=== PATIENT | male | born 1955 | race Caucasian/White ===

== ENCOUNTER 2018-09-01 14:26 | Inpatient (IN) | payer BC, MEDICARE ==
[~2018-09-01] VITALS: Ht 180.3 cm; Wt 113.4 kg
--- NOTE | 2018-09-01 14:27 | NUR ---
AAOX3, BIBRA 76 C/O SYNCOPAL EPISODE WHILE DRIVING HOME, NO TRAUMA, NEW ONSET AFIB PER CLINICAL LABORATORY TECHNICIAN. RR IS EVEN AND UNLABORED WITH NAD NOTED. SKIN IS WARM AND DRY. PLACED ON THE MONITOR. EKG IN PROGRESS AT BS.
--- NOTE | 2018-09-01 14:30 | NUR ---
Note undone in EDM - 09/01/18 at 1440 by KUSUM PT BIBRA 76 C/O SYNCOPAL EPISODE WHILE DRIVING HOME, NO TRAUMA, AI=[id number]/DL SPEED BELT SANDER, NEW ONSET AFIB. ALERT AND ORIENTED X 4, VERBALLY RESPONSIVE AND ABLE TO MAKE NEEDS KNOWN. ON ROM AIR, BREATHING EVENLY, AND UNLABORED. DENIES ANY PAIN AT THIS TIME. CONNECTED TO THE MONITOR AND PUT ON A GOWN. KEPT COMFORTABLE. WILL CONTINUE TO MONITOR ACCORDINGLY.
--- NOTE | 2018-09-01 14:34 | NUR ---
DR ENGLISH AT BS FOR EVAL.
[2018-09-01 14:41] LABS: BASOPHILS % (AUTO) 0.7 % (0.0-2.0); EOSINOPHILS % (AUTO) 1.7 % (0.0-6.0); HEMATOCRIT 33 % (39-51); HEMOGLOBIN 10.6 g/dL (13.5-17.5); LYMPHOCYTES # (AUTO) 0.8 /CMM (0.8-4.8); MEAN CORPUSCULAR HGB CONC 33 g/dl (31.0-36.0); MEAN CORPUSCULAR VOLUME 87 fL (80-96); MONOCYTES # (AUTO) 0.6 /CMM (0.1-1.30); MONOCYTES % (AUTO) 12.1 % (2.0-12.0); NEUTROPHILS # (AUTO) 3.6 /CMM (1.8-8.9); NEUTROPHILS % (AUTO) 70.5 % (43.0-81.0); PLATELET COUNT (AUTO) 205 /CMM (150-450); RED BLOOD CELL COUNT(AUTO) 3.76 MIL/uL (4.5-6.0); WHITE BLOOD COUNT (AUTO) 5.1 K/uL (4.3-11.0)
--- NOTE | 2018-09-01 14:50 | NUR ---
PLASMA PROCESSING CENTRIFUGE OPERATOR AT BEDSIDE.
[2018-09-01 14:55] LABS: ALANINE AMINOTRANSFERASE 20 U/L (12-78); ALBUMIN 3.6 g/dL (3.4-5.0); ALKALINE PHOSPHATASE 60 U/L (46-116); ASPARTATE AMINOTRANSFERASE 14 U/L (15-37); BILIRUBIN,DIRECT 0.1 mg/dL (0.0-0.2); BILIRUBIN,TOTAL 0.3 mg/dL (0.2-1.0); CALCIUM, SERUM 6.8 mg/dL (8.5-10.1); CARBON DIOXIDE 30 mmol/L (21-32); GLUCOSE 95 mg/dL (74-106); TOTAL PROTEIN, SERUM 6.4 g/dL (6.4-8.2); UREA NITROGEN, BLOOD 24 mg/dL (7-18)
[2018-09-01 15:09] LABS: CHLORIDE 107 mmol/L (98-107); POTASSIUM 3.6 mmol/L (3.5-5.1); SODIUM SERUM 150 mmol/L (136-145)
[2018-09-01] MEDS ORDERED: ASPI-1169 PO (15:25)
[2018-09-01] MEDS ORDERED: ATEN25TA PO (15:25)
[2018-09-01] MEDS ORDERED: AMLO2.5T3 PO (15:25)
[2018-09-01] MEDS ORDERED: LEVO125T8 PO (15:25)
[2018-09-01] MEDS ORDERED: ROSU5TAB PO (15:25)
[2018-09-01] MEDS ORDERED: PIOG15TA8 PO (15:25)
[2018-09-01] MEDS ORDERED: DOXA2TAB PO (15:25)
[2018-09-01] MEDS ORDERED: LISI2.5T2 PO (15:25)
[2018-09-01] MEDS ORDERED: RANI150T43 PO (15:25)
[2018-09-01] MEDS ORDERED: IV NS 0.9% 500 ML BAG IV ONE (16:30)
--- NOTE | 2018-09-01 16:47 | NUR ---
CALLED NURSING SUP REQUESTING TELE BED FOR THIS PATIENT
[2018-09-01] MEDS ORDERED: IOHEXOL-350 100 ML VIAL IV ONE (16:48)
[2018-09-01] MEDS ORDERED: CT SWABBABLE VALVE TRANS SET 1 EA INFUS.SET MC ONE (16:48)
[2018-09-01] MEDS ORDERED: IV NS 0.9% 250 ML IV ONE (16:48)
--- NOTE | 2018-09-01 16:53 | NUR ---
WHEELED PATIENT VIA [facility] FOR CT SCAN.
--- NOTE | 2018-09-01 17:09 | NUR ---
PT CAME BACK FROM CT.
--- NOTE | 2018-09-01 17:13 | NUR ---
ADRIANOG SLICER MACHINE OPERATOR GAVE ROOM PT GOING TO ROOM 322-2 T.
[2018-09-01] MEDS ORDERED: IV 1/2NS 1000 ML 1,000 ML IV PRN (17:27)
[2018-09-01] MEDS ORDERED: INSULIN REGULAR, HUMAN 100 UNIT/ML 3 ML VIAL SQ PRN (17:30)
[2018-09-01] MEDS ORDERED: HYDROCODONE/APAP 5/325MG 1 EACH TABLET PO PRN (17:30)
[2018-09-01] MEDS ORDERED: MAG HYDROX/AL HYDROX/SIMETH 30 ML UDC PO PRN (17:30)
[2018-09-01] MEDS ORDERED: *INSULIN REGULAR(HUMULIN R)HUM 100 UNIT/ML VIAL SQ PRN (17:30)
[2018-09-01] MEDS ORDERED: ZOLPIDEM TARTRATE 5 MG TABLET PO PRN (17:30)
[2018-09-01] MEDS ORDERED: MAGNESIUM HYDROXIDE 30 ML UDC PO PRN (17:30)
[2018-09-01] MEDS ORDERED: ONDANSETRON HCL/PF 4 MG/2 ML VIAL IVP PRN (17:30)
[2018-09-01] MEDS ORDERED: DEXTROSE 50%-WATER 50 ML DISP.SYRIN IV PRN (17:30)
[2018-09-01] MEDS ORDERED: Z GUARD REMEDY 2 OZ OINT TP PRN (17:30)
--- NOTE | 2018-09-01 17:31 | NUR ---
CALLED [facility] AND SPOKE TO SABINE BISHOP FOR REPORT GOING TO ROOM 322-2.
--- NOTE | 2018-09-01 18:27 | NUR ---
TRANSFERRED PATIENT TO [facility] VIA ACLS PROTOCOL, NURSE AT BEDSIDE.
[2018-09-01] MEDS: BLOOD SUGAR DIAGNOSTIC 1 EACH STRIP VI SCH ×2 (18:29→22:28)
--- NOTE | 2018-09-01 18:34 | NUR ---
PATIENT WAS RECEIVED ON THE FLOOR AT THIS TIME
[2018-09-01] MEDS: DOXAZOSIN MESYLATE (1 MG) 1 MG TABLET PO SCH (18:51)
--- NOTE | 2018-09-01 18:55 | NUR ---
RN CLOSING NOTES PT WAS RECEIVED AND IN BED AT LOWEST AND LOCKED POSITION WITH SIDE RAILS UP X3, A/O X4, BREATHING EVEN AND UNLABORED ON RA, NO S/S OF PAIN OR DISTRESS NOTED. PT IS AMBULATORY, LAC 18 GAUGE PATENT AND INTACT, SAFETY PRECAUTIONS IN PLACE, CALL LIGHT WITHIN REACH, WILL ENDORSE TO NIGHT RN FOR CONTINUITY OF CARE
[2018-09-01] MEDS: ENOXAPARIN SODIUM 40 MG/0.4 ML DISP.SYRIN SQ SCH (19:10)
--- NOTE | 2018-09-01 19:50 | NUR ---
SCOREBOARD OPERATOR NOTE RECEIVED PT IN STABLE CONDITION A&O X4. TELE BOX READING SR 65. PT AMBULATORY TO RESTROOM WITH STEADY GATE. SAFETY MEASURES IN PLACE WITH BED IN LOWEST POSITION AND CALL LIGHT WITHIN REACH. WILL CONT. TO MONITOR PT. THOUGH THE NIGHT.
[2018-09-01 20:00] VITALS: BP 149/79
[2018-09-01] MEDS: FAMOTIDINE (20 MG) 20 MG TABLET PO SCH (21:23)
[2018-09-01] MEDS: ACETAMINOPHEN 325 MG TABLET PO PRN (21:36)
--- NOTE | 2018-09-01 21:39 | NUR ---
RUBBER GASKET INSPECTOR TRIMMER NOTE TYLENOL 650 MG GIVEN TO PT. TO MILD PAIN LOCATED ON INCISION ALONG MID CHEST.
[2018-09-02] VITALS (10 sets, daily range): BP systolic 113–145; BP diastolic 72–87
[2018-09-02] MEDS ORDERED: hydrALAZINE HCL 25 MG TABLET PO PRN
--- NOTE | 2018-09-02 06:17 | NUR ---
BUSINESS UNIT LEADER NOTE PT REMAINS IN STABLE CONDITION, CURRENTLY RESTING BED. A&O X4 EASILY AWAKENS WHEN NAME IS CALLED. NO SIGNS OF SOB OR DISTRESS. ALL CURRENT NEEDS MET. SAFETY MEASURES IN PLACE. BED IN LOCKED/LOWEST POSITION, WITH CALL LIGHT WITHIN REACH.
[2018-09-02 06:29] LABS: BASOPHILS % (AUTO) 0.9 % (0.0-2.0); EOSINOPHILS % (AUTO) 2.1 % (0.0-6.0); HEMATOCRIT 30 % (39-51); LYMPHOCYTES # (AUTO) 0.7 /CMM (0.8-4.8); LYMPHOCYTES % (AUTO) 16.1 % (20.0-44.0); MEAN CORPUSCULAR HGB CONC 33 g/dl (31.0-36.0); MEAN CORPUSCULAR VOLUME 86 fL (80-96); MONOCYTES # (AUTO) 0.5 /CMM (0.1-1.30); MONOCYTES % (AUTO) 11.8 % (2.0-12.0); NEUTROPHILS # (AUTO) 3.1 /CMM (1.8-8.9); NEUTROPHILS % (AUTO) 69.1 % (43.0-81.0); PLATELET COUNT (AUTO) 176 /CMM (150-450); RED BLOOD CELL COUNT(AUTO) 3.53 MIL/uL (4.5-6.0); WHITE BLOOD COUNT (AUTO) 4.4 K/uL (4.3-11.0)
[2018-09-02 06:45] LABS: CALCIUM, SERUM 6.5 mg/dL (8.5-10.1); CREATININE 0.9 mg/dL (0.6-1.3); MAGNESIUM 1.6 mg/dL (1.8-2.4); PHOSPHORUS 4.7 mg/dL (2.5-4.9); POTASSIUM 3.1 mmol/L (3.5-5.1)
--- NOTE | 2018-09-02 07:22 | NUR ---
PERIPHERAL EQUIPMENT OPERATOR OPENING NOTE PT RECEIVED IN BED AT LOWEST AND LOCKED POSITION WITH SIDE RAILS UP X2, A/O X4, BREATHING EVEN AND UNLABORED ON RA, NO S/S OF PAIN OR DISTRESS CURRENTLY NOTED, IV IS PATENT AND INTACT WITH 1/2 NS INFUSING, SAFETY PRECAUTIONS IN PLACE, CALL LIGHT WITHIN REACH, WILL MONITOR ACCORDINGLY
[2018-09-02] MEDS: BLOOD SUGAR DIAGNOSTIC 1 EACH STRIP VI SCH ×4 (07:31→22:02)
[2018-09-02] MEDS: DOXAZOSIN MESYLATE (1 MG) 1 MG TABLET PO SCH ×2 (08:28→16:23)
[2018-09-02] MEDS: ATORVASTATIN 10 MG TABLET PO SCH (08:28)
[2018-09-02] MEDS: FAMOTIDINE (20 MG) 20 MG TABLET PO SCH ×2 (08:29→20:07)
[2018-09-02] MEDS: ASPIRIN 81 MG TAB.CHEW PO SCH (08:29)
[2018-09-02] MEDS: LEVOTHYROXINE SODIUM 112 MCG TABLET PO SCH (08:29)
[2018-09-02] MEDS: ATENOLOL 25 MG TABLET PO SCH (08:30)
[2018-09-02] MEDS: LISINOPRIL (20MG) 20 MG TABLET PO SCH (08:31)
[2018-09-02] MEDS: AMLODIPINE BESYLATE 2.5 MG TABLET PO SCH (08:32)
[2018-09-02] MEDS ORDERED: IV NS 0.9% 1,000 ML IV PRN (09:13)
[2018-09-02] MEDS: POTASSIUM CHLORIDE 20 MEQ TAB.PRT.SR PO SCH ×3 (09:30→12:06)
[2018-09-02] MEDS: Magnesium 1GM/D5W 100ML PREMIX 100 ML IV SCH ×2 (09:32→10:13)
[2018-09-02] MEDS: CALCIUM CARBONATE 500 MG TAB.CHEW PO SCH (16:30)
[2018-09-02] MEDS ORDERED: IV D5/0.45 NACL 1,000 ML IV SCH (18:00)
--- NOTE | 2018-09-02 18:18 | NUR ---
MESSAGE WAS SENT TO DR. DIAZ REGARDING IVF RATE, AWAITING ORDER CLARIFICATION
--- NOTE | 2018-09-02 18:28 | NUR ---
SPINDLE MAKER CLOSING NOTE PT IN BED AT LOWEST AND LOCKED POSITION WITH SIDE RAILS UP X2, A/O X4, BREATHING EVEN AND UNLABORED ON RA, NO S/S OF PAIN OR DISTRESS CURRENTLY NOTED, IV IS PATENT AND INTACT, SAFETY PRECAUTIONS IN PLACE, CALL LIGHT WITHIN REACH, ALL NEEDS ATTENDED TO, WILL ENDORSE TO TRANSPORT CONDUCTOR FOR CONTINUITY OF CARE
[2018-09-02] MEDS: CALCITRIOL ORAL SOLUTION 1 MCG/ML NG SCH (18:41)
--- NOTE | 2018-09-02 19:40 | NUR ---
FILM LOADER NOTE: PATIENT RESTING IN BED, NO ACUTE DISTRESS NOTED. BREATHING EVEN AND UNLABORED, NO SOB NOTED. NO S/S OF HYPER/HYPOGLYCEMIA NOTED. BED LOCKED AND IN LOWEST POSITION, CALL LIGHT IN REACH. WILL CONTINUE TO MONITOR.
[2018-09-02] MEDS: ACETAMINOPHEN 325 MG TABLET PO PRN (20:07)
[2018-09-02] MEDS: ENOXAPARIN SODIUM 40 MG/0.4 ML DISP.SYRIN SQ SCH (20:08)
--- NOTE | 2018-09-02 22:30 | NUR ---
LOW PRESSURE FIRER NOTE: PATIENT BLOOD SUGAR LEVEL 92MG/DL, NO INSULIN NEEDED PER SLIDING SCALE. NO S/S OF HYPER/HYPOGLYCEMIA NOTED. SNACKS PROVIDED. WILL CONTINUE TO MONITOR.
[2018-09-03 04:00] VITALS: BP 142/85
--- NOTE | 2018-09-03 06:30 | NUR ---
MEDICAL OFFICE REP NOTE: PATIENT RESTING IN BED, NO ACUTE DISTRESS NOTED. BREATHING EVEN AND UNLABORED, NO SOB NOTED. PATIENT BLOOD SUGAR LEVEL 87 MG/DL, NO INSULIN NEEDED PER SLIDING SCALE, NO S/S OF HYPER/HYPOGLYCEMIA NOTED. BED LOCKED AND IN LOWEST POSITION, CALL LIGHT IN REACH. WILL ENDORSE TO DAY NURSE TO CONTINUE WITH PLAN OF CARE.
[2018-09-03] MEDS: BLOOD SUGAR DIAGNOSTIC 1 EACH STRIP VI SCH (06:33)
--- NOTE | 2018-09-03 07:38 | NUR ---
MS RN Opening Note Patient is awake and resting in bed. Alert and oriented x 4. Able to make needs known, no complaints of pain or signs of distress at this time. Respirations even and unlabored, saturating on room air. Peripheral IV to the left AC 18 gauge, intact, patent and saline locked. Safety and Fall precautions in place: bed in lowest and locked position, side rails up x2, call light and personal possessions within reach. Patient verbalized understanding of safety measures and current plan of care. Will continue to monitor and intervene as needed. Addendum: 09/03/18 at 0744 by BRODIE WALTON RN storekeeper steward Correction Patient currently on engineering writer, sinus rhythm at 76 bpm.
[2018-09-03 08:00] VITALS: BP 142/93
[2018-09-03] MEDS: LEVOTHYROXINE SODIUM 112 MCG TABLET PO SCH (08:17)
[2018-09-03] MEDS: ASPIRIN 81 MG TAB.CHEW PO SCH (08:20)
[2018-09-03] MEDS: LISINOPRIL (20MG) 20 MG TABLET PO SCH (08:20)
[2018-09-03] MEDS: ATORVASTATIN 10 MG TABLET PO SCH (08:20)
[2018-09-03] MEDS: FAMOTIDINE (20 MG) 20 MG TABLET PO SCH (08:20)
[2018-09-03] MEDS: CALCITRIOL ORAL SOLUTION 1 MCG/ML NG SCH (08:20)
[2018-09-03] MEDS: ATENOLOL 25 MG TABLET PO SCH (08:21)
[2018-09-03] MEDS: AMLODIPINE BESYLATE 2.5 MG TABLET PO SCH (08:21)
[2018-09-03] MEDS: CALCIUM CARBONATE 500 MG TAB.CHEW PO SCH (08:21)
[2018-09-03 08:22] VITALS: BP 142/93
[2018-09-03] MEDS: DOXAZOSIN MESYLATE (1 MG) 1 MG TABLET PO SCH (08:22)
--- NOTE | 2018-09-03 10:30 | NUR ---
MS activated sludge operator Note [facility] EDNA Dubose. Patient to be taken home by private car, arranged by patient. Medically stable, vital signs within baseline. Patient alert and oriented x 4. Able to make needs known, no complaints of pain or signs of distress at this time. Respirations even and unlabored, saturating on room air. Ambulates with steady gait. Peripheral IV access to left AC 18 gauge removed, catheter intact. No signs or symptoms of infiltration or phlebitis of the site. Removed ID band from patient. Patient refused skin assessment and discharge photos to be taken at this time, anxious and in a hurry to be discharged home to return to work. Patient left with all personal belongings and clothing, acknowledged and signed belongings form with copy provided to patient and placed in chart. Discharge instructions, education and Exitcare provided to the patient, verbalized understanding of discharge instructions and follow-up instructions. Acknowledged understanding of instructions and education by signings discharge form, copy provided to patient and placed in chart.
== END 2018-09-03 10:30 | disposition home or self-care (01) | DRG 683 ==
LOC: ER 14:28 → TELE 18:00 → MED 09-03 08:39
PROVIDERS: ADMIT Internal Medicine; ATTEND Internal Medicine
DX: N17.0 Acute kidney failure with tubular necrosis (principal); E87.0 Hyperosmolality and hypernatremia; E86.0 Dehydration; R55 Syncope and collapse; E78.5 Hyperlipidemia, unspecified; I25.10 Atherosclerotic heart disease of native coronary artery without angina pectoris; Z95.2 Presence of prosthetic heart valve; I10 Essential (primary) hypertension; E11.9 Type 2 diabetes mellitus without complications; E78.00 Pure hypercholesterolemia, unspecified; K21.9 Gastro-esophageal reflux disease without esophagitis; Z85.850 Personal history of malignant neoplasm of thyroid; E86.1 Hypovolemia
CPT/HCPCS: 36415; 71045-TC; 80048-TC; 80061-TC; 80076-TC; 82962-TC; 83735-TC; 84100-TC; 84484-TC; 85025-TC; 85378-TC; 85730-TC; 87081-TC; 93307-TC; 93880-TC; A4606; G0378; J1650; J1815; J3475; J3490; J7030; J7040; J7050; Q9967; Z7610